=== PATIENT | female | born 1955 | race Caucasian/White ===

== ENCOUNTER 2017-02-25 14:06 | Inpatient (IN) | payer MEDICARE ==
--- NOTE | ~2017-02-25 | CN ---
Consultation Report [facility] [address] [place]. [address] NAME: TIEN ALDRIDGE : 51 STATUS : ADM IN PAT#: [id number] AGE: 61 ADM/REG DATE : 02/25/17 MR#: [id number] REPORT SERV DATE: 02/26/17 DICTATED BY: DATE: REPORT STATUS : Draft TRANSCRIBED BY: MODL DATE: 02/26/17 CONSULTATION DATE OF CONSULTATION: CONSULTATION REASON: Diabetes management. HISTORY OF PRESENT ILLNESS: This is a very pleasant 61-year-old female with a history of Parkinson's disease and dementia, diabetes mellitus type 2, bipolar disease, and heart failure. The patient was recently discharged on 02/21/2017 from [facility] after being admitted for a small bowel obstruction. She had an exploratory laparotomy and lysis of adhesions per Dr. Novoa. Her obstruction was resolved; however, she did develop C diff colitis. She was discharged on Flagyl p.o.; however, it is unclear if the patient was compliant with the medication regimen and she is still having diarrhea. Her blood sugars here have been controlled, the last one however was 239. The patient has not received her home Glucophage. PAST MEDICAL HISTORY: Includes bipolar, hypertension, GERD, diabetes mellitus type 2, hypothyroidism, fibromyalgia, hyperlipidemia, Parkinson's disease, diastolic heart failure, recent history of Clostridium difficile colitis, and small bowel obstruction. SURGICAL HISTORY: Includes appendectomy, cholecystectomy, hysterectomy, and recent exploratory lap with lysis of adhesions. SOCIAL HISTORY: The patient denies tobacco, alcohol, and illicit drug use. FAMILY HISTORY: The patient reports being adopted. HOME MEDICATIONS: Include Sinemet CR 25/100 mg tablet one tab t.i.d. and also at bedtime p.r.n. as needed, vitamin D3 at 1000 units p.o. daily, Celexa 40 mg p.o. at bedtime, Klonopin 0.5 mg p.o. b.i.d., vitamin B12 at 500 mg p.o. daily, Lasix 20 mg p.o. daily p.r.n. for weight gain greater than 2 pounds, Neurontin 600 mg p.o. b.i.d., Synthroid 50 mcg p.o. daily, Glucophage 500 mg p.o. at breakfast and supper, Flagyl 500 mg p.o. q.8 hours, Remeron 7.5 mg p.o. at bedtime, niacin 500 mg p.o. at bedtime, Percocet 5/325 mg tablet one tab p.o. q.4 hours p.r.n. for pain, Protonix 40 mg p.o. daily, potassium 10 mEq p.o. daily p.r.n., Neupro 8 mg 24-hour patch, tetrabenazine 25 mg p.o. at bedtime, Ambien 10 mg p.o. at bedtime. ALLERGIES: THE PATIENT HAS NO KNOWN DRUG ALLERGIES. REVIEW OF SYSTEMS: A 10-point review of systems was performed. All positives noted above, otherwise negative. PHYSICAL EXAMINATION: Consultation Report [address] [place]. [address] NAME: TIEN ALDRIDGE : 51 STATUS : ADM IN [facility]#: [id number] AGE: 61 ADM/REG DATE : 02/25/17 MR#: [id number] REPORT SERV DATE: 02/26/17 DICTATED BY: DATE: REPORT STATUS : Draft TRANSCRIBED BY: MODL DATE: 02/26/17 CONSTITUTIONAL: The patient is confused and pleasant. Denies fevers or chills. HEENT: Head is normocephalic. Throat clear. Denies discharge, sore throat, or cough. Pupils equal, round, and reactive to light and accommodation. RESPIRATORY: Lungs clear throughout. Lung rowe with normal respiratory effort. CV: S1 and S2 present. No murmurs, rubs, or gallops noted. GI: Abdominal tenderness to palpation. Bowel sounds present. NEURO: No focal deficits noted. Cranial nerves 2 through 12 grossly intact. However, the patient is pleasantly confused. She is alert and oriented x2. PSYCH: She has an appropriate affect and is cooperative. ASSESSMENT AND PLAN: 1. Diabetes mellitus type 2. We will check a.c. and h.s. blood sugars. Place the patient on sliding scale. I will hold her long-acting Lantus for now to ensure that she is able to tolerate p.o.'s. We will continue her metformin p.o. 2. Diarrhea and abdominal pain. This will be managed by the primary team of Dr. Star Novoa starting Flagyl p.o. The patient recently was diagnosed with Clostridium difficile at [facility]. She was discharged with a prescription for Flagyl; however, it was never filled and the patient did not take any after discharge. Likely, her diarrhea is related to Clostridium difficile. 3. Recent exploratory lap with lysis of adhesions per Dr. Novoa. Denies nausea and vomiting. She will be placed on a regular diet per the primary team as long as she tolerates it. Again, I will adjust her diabetes management based on her p.o. intake and blood sugar levels. CLR/MODL Casey Patel NP / [id number] CC: Haris Novoa M.D. Harvey Bailey MD
--- NOTE | ~2017-02-25 | DS ---
Discharge Summary [facility] [address] [place]. [address] NAME: TIEN ALDRIDGE : 51 STATUS : DIS IN PAT#: [id number] AGE: 61 ADM/REG DATE : 02/25/17 MR#: [id number] REPORT SERV DATE: 03/12/17 DICTATED BY: HARIS SENA DATE: 03/11/17 REPORT STATUS : Draft TRANSCRIBED BY: MODSang DATE: 03/11/17 Data Collection from hospitalization DISCHARGE DIAGNOSES: ( ) ( ) ( ) CONSULTATION: Casye Patel NP PROCEDURES PERFORMED: None. DISCHARGE MEDICATIONS: Vitamin B12 500 mcg every morning, niacin 50 mg at bedtime, Sinemet CR one tablet three times a day and as instructed, vitamin D3 1000 units every morning, Celexa 40 mg at bedtime, Lasix 20 mg every morning, Lasix 20 mg daily as needed, Neurontin 600 mg twice a day, Lantus 10 units subcutaneously at bedtime, Synthroid 50 mcg every morning, Remeron 7.5 mg at bedtime, Theragran tablets one tablet daily, Protonix 40 mg every morning, Neupro one patch topically every morning, Florastor two capsules twice a day, tetrabenazine 25 mg at bedtime, Ambien 5 mg at bedtime, Klonopin 0.5 mg twice a day, Glucophage 500 mg with breakfast and supper, Flagyl 500 mg every eight hours for 10 days, Tylenol 650 mg every six hours as needed, Sinemet CR one tablet at bedtime as needed, glucagon 1 mg IM as needed, glucose tablets as instructed, potassium chloride SR 10 mEq daily as needed, Motrin PM two tablets at bedtime as needed. CONDITION AT DISCHARGE: Stable. DISPOSITION: The patient was discharged to [facility] on a diabetic diet with activities as instructed. HOSPITAL COURSE: This is a 61-year-old female, who had been admitted to the [facility] and was just recently discharged the week prior to this admission. I was consulted during that admission for a partial small bowel obstruction. We attempted to get this resolved with conservative therapy and she never would open up, so she was taken to the operating room, where an exploratory laparotomy and lysis of adhesions were performed. This occurred on 02/11/2017. Postoperatively, she developed a mild ileus, but her nasogastric tube was able to be removed later in the week on approximately 02/15/2017. Her diet was slowly started. I last saw her on 02/19/2017 and she was tolerating a regular diet and was having bowel activity. She had no further nausea or vomiting. She apparently started having some loose stools and was checked for C difficile and this was positive. Her white count remained normal and she had no toxicity associated with it and she opted to be treated with Flagyl. However, when the patient was discharged, she never got her Flagyl prescription filled, started and initiated. She started having what she reports is uncontrolled diarrhea, but denied any nausea, vomiting, or abdominal pain. She presented to the emergency room at this time and was admitted for further evaluation and treatment. Upon admission, Flagyl was going to be initiated. She did not have any acute surgical issues or evidence of any surgical complications at this time. She was seen by Casey Patel regarding diabetes management. The patient has a history of Parkinson disease, dementia, type 2 diabetes mellitus, bipolar disease, and heart failure. The patient was Discharge Summary [address] [address] NAME: TIEN ALDRIDGE : 51 STATUS : DIS IN PAT#: [id number] AGE: 61 ADM/REG DATE : 02/25/17 MR#: [id number] REPORT SERV DATE: 03/12/17 DICTATED BY: HARIS SENA DATE: 03/11/17 REPORT STATUS : Draft TRANSCRIBED BY: ABBIE DATE: 03/11/17 going to be placed on sliding scale insulin. Long-acting Lantus was going to be held for now to ensure that she was able to tolerate oral intake. Oral metformin was going to be continued. She was going to be placed on a regular diet as long as she could tolerate this. Diabetes management would be adjusted based on her oral intake and blood sugar level. On the , she has had a good night. She denied any nausea or vomiting or abdominal pain. Her incisions were dry. Her abdomen was soft, nontender, and nondistended. She had no surgical issues. She was evaluated by Physical Therapy. Discharge planning was performed. She was up sitting in a chair. Lantus was added to her regimen that evening. Level 2 sliding scale insulin continued. On 02/28/2017, she was feeling good. She was afebrile. Her abdomen remained soft and nontender. Stool studies were negative. Discharge instructions were given. Due to her improved and stable condition, she was discharged to [facility] with the above-stated instructions. Information collected by: April Tracy I submit the above information as my discharge summary. GOKUL/ABBIE Haris Sena M.D. / [id number] CC: Haris Sena M.D. [facility]
--- NOTE | ~2017-02-25 | HP ---
History And Physical [facility] [place] [id number] [facility] [place]. [address] NAME: TIEN DOUGHERTY : 51 STATUS : ADM IN PAT#: [id number] AGE: 61 ADM/REG DATE : 02/25/17 MR#: [id number] REPORT SERV DATE: 02/26/17 DICTATED BY: HARIS SENA DATE: 02/26/17 REPORT STATUS : Draft TRANSCRIBED BY: MODSang DATE: 02/26/17 DATE OF ADMISSION: 02/25/2017 CHIEF COMPLAINT: Diarrhea and weakness. HISTORY OF PRESENT ILLNESS: Ms. Dougherty is a 61-year-old female, who was admitted to [facility] and was just recently discharged last week. I was consulted during her admission for a partial small bowel obstruction. We attempted to get this resolved with conservative therapy and she never would open up, so she was taken to the operating room, where an exploratory laparotomy and lysis of adhesions were performed. This occurred on 02/11/2017. Postoperatively, she developed a mild ileus, but her nasogastric tube was able to be removed later in the week on approximately 02/15/2017, and a diet was slowly started. I last saw her a week ago on 02/19/2017, and she was tolerating a regular diet and having bowel activity, and no further nausea or vomiting. She apparently started having some loose stools and she was checked for C diff, and this was positive. Her white count remained normal and she had no toxicity associated with it and has opted to be treated with Flagyl. However, when the patient was discharged, she never got her Flagyl prescription filled, started, and initiated. She started having what she reports as uncontrollable diarrhea, but denies any nausea, vomiting, or abdominal pain. She presented to the emergency room last night, was admitted by emergency room doctor to my service after consultation with Dr. Logan, who was covering for me and I was not aware of the admission until this afternoon while I was notified of it by the nursing staff. Currently, she denies any abdominal pain. No nausea or vomiting. Just reports her diarrhea was uncontrollable, but she was unable to quantitate this and could not tell me how many bowel movements she was having on a daily basis. She does have some dementia associated with Parkinson's disease apparently and her daughters were not with her at the bedside. Last night in the emergency room, no imaging was performed, but laboratory analysis revealed a white blood cell count of 6.9, hematocrit of 30, platelet count 366. She was eating lunch today, but just had a poor intake and she states that she just feels very weak and cannot get around well. PAST MEDICAL HISTORY: Significant for fibromyalgia, diabetes, bipolar disease, dementia and Parkinson's disease, and gastroesophageal reflux disease. CURRENT MEDICATIONS: At home include Glucophage, Celexa, Neurontin, Klonopin, Remeron, vitamins, and insulin. ALLERGIES: NO KNOWN DRUG ALLERGIES. SOCIAL HISTORY: Denies tobacco or alcohol use. FAMILY HISTORY: She is adopted and family history is unobtainable. REVIEW OF SYSTEMS: The patient denies any abdominal pain, nausea, or vomiting. No fever or chills. No shortness of breath. No other associated symptoms or problems. History And Physical [address] [address] NAME: TIEN DOUGHERTY : 51 STATUS : ADM IN [facility]#: [id number] AGE: 61 ADM/REG DATE : 02/25/17 MR#: [id number] REPORT SERV DATE: 02/26/17 DICTATED BY: HARIS SENA DATE: 02/26/17 REPORT STATUS : Draft TRANSCRIBED BY: ABBIE DATE: 02/26/17 PAST SURGERIES: Are numerous and include an appendectomy, hysterectomy, open cholecystectomy, and the aforementioned recent lysis of adhesions done earlier this month. PHYSICAL EXAMINATION: VITAL SIGNS: Temperature is 99, pulse 76, respirations 18, blood pressure 129/76. GENERAL: She is an elderly female, who is in no acute distress. HEENT: Pupils are equal, round, and reactive to light. NECK: Supple. She has no jugular venous distention. No carotid bruits. PULMONARY: Normal respiratory effort. Breath sounds are clear. CARDIOVASCULAR: Regular rate and rhythm. ABDOMEN: Soft, nondistended. Her machelle are intact. She has no evidence of wound infection. EXTREMITIES: No clubbing, cyanosis, or edema. LABORATORY DATA: White blood cell count is 6.9, hematocrit 30, platelet count 366. Sodium 142, potassium 3.8, chloride 108, CO2 of 31, BUN 5, creatinine 0.58, albumin is 2.3, total bilirubin 0.3, alkaline phosphatase 73, ALT 17, AST 16. ASSESSMENT: The patient with recent status post exploratory laparotomy for lysis of adhesions and numerous medical problems including diabetes, Parkinson's, and Clostridium difficile colitis. PLAN: Plan is to initiate Flagyl for her known history of C diff that was tested positive at [facility] last week. We will also ask the hospitalist to assist us with management for medical issues. At the present time, she does not have any acute surgical issues or evidence of any surgical complications, so we will hold off on doing any imaging and continue to follow. ERIN/ABBIE Haris Sena M.D. / [id number] CC: Haris Sena M.D.
[~2017-02-25 14:06] MED LIST: CELEXA40 MG PO; COGEN1 PO; ESKALITH PO; HUMULIN SC; LEVOTHYROXIN125 MCG PO; NEUR300 PO; POOR HISTORIAN; SEROPHENE50 MG OR; VITAMIN D31000 UNIT PO
[2017-02-25 14:30] LABS: ER CBC TAT 0 Hrs 05 Mins; HEMATOCRIT 33.4 % (36.0-48.0); HEMOGLOBIN 10.7 g/dL (12.0-16.0); MANUAL DIFF YES %; MEAN CORPUSCULAR HEMOGLOB 29.6 pg (26.0-34.0); MEAN CORPUSCULAR VOLUME 92.3 fL (80-100); PLATELET COUNT 412 10/3/uL (150-400); RBC DISTRIBUTION WIDTH 16.3 % (12.0-16.0); RED CELL COUNT 3.62 10/6/uL (4.0-5.6); WHITE BLOOD CELLS 11.1 10/3/uL (4.5-10.5)
[2017-02-25 14:49] LABS: A/G RATIO 0.7 (0.7-1.9); ALBUMIN 2.9 G/DL (3.5-5.0); BUN (BLOOD UREA NITROGEN) 8 MG/DL (6-23); CALCIUM, SERUM 8.9 MG/DL (8.5-10.4); CHLORIDE, SERUM 111 MMOL/L (96-112); CREATININE 0.85 MG/DL (0.55-1.02); GFR AFRICAN AMERICAN 85 ML/MIN (>=60); GFR NON AFRICAN AMERICAN 73 ML/MIN (>=60); GLOBULIN 4.3 G/DL (2.5-4.1); POTASSIUM, SERUM 4.2 MMOL/L (3.5-5.3); SGOT(AST) 21 U/L (5-40); SGPT(ALT) 10 U/L (5-65); SODIUM, SERUM 145 MMOL/L (135-148); TOTAL BILIRUBIN 0.3 MG/DL (0-1.2); TOTAL PROTEIN 7.2 G/DL (6.0-8.5)
[2017-02-25 14:50] LABS: ALKALINE PHOSPHATASE 94 U/L (45-117); CO2 (CARBON DIOXIDE) 28 MMOL/L (24-34); GLUCOSE, SERUM 167 MG/DL (60-99)
[2017-02-25 15:25] LABS: ANISOCYTOSIS 1+ (5-10/OIF) (0-5/OIF); BAND NEUTROPHILS 3 %; ER DIFF TAT 1 Hrs 00 Mins; LYMPHOCYTES 26 %; LYMPHOCYTES ABSOLUTE (CALC) 2.89 10/3/uL (0.67-4.30); MONOCYTES 3 %; MONOCYTES ABSOLUTE (CALC) 0.33 10/3/uL (0.21-1.20); NEUTROPHILS ABSOLUTE (CALC) 7.88 10/3/uL (2.02-8.40); PLATELET ESTIMATE ADQ (ADEQUATE); SEGMENTED NEUTROPHIL (0) 68 %; TOTAL NUCLEATED CELLS 100
[2017-02-25] MEDS ORDERED: L20 PO (20:02)
[2017-02-25] MEDS ORDERED: LACTOBACILLUS (20:03)
[2017-02-25] MEDS ORDERED: FLAG500TAB PO (20:03)
[2017-02-25] MEDS ORDERED: PCET PO (20:04)
[2017-02-25] MEDS ORDERED: PROTONIX PO (20:05)
[2017-02-25] MEDS ORDERED: KLOR-CON 1010 MEQ PO (20:08)
[2017-02-25] MEDS ORDERED: TETRABENAZINE 25 MG PO (20:08)
[2017-02-25] MEDS ORDERED: REM15 PO (20:09)
[2017-02-25] MEDS ORDERED: NEUR600 PO (20:10)
[2017-02-25] MEDS ORDERED: KLONO5 PO (20:10)
[2017-02-25] MEDS ORDERED: SYN.05 PO (20:11)
[2017-02-25] MEDS ORDERED: GLUCPH PO (20:11)
[2017-02-25] MEDS ORDERED: AMB10 PO (20:12)
[2017-02-25] MEDS ORDERED: CELEXA40 MG PO (20:12)
[2017-02-25] MEDS ORDERED: SINCR25100 PO (20:13)
[2017-02-25] MEDS ORDERED: METRONIDAZOLE PO (20:14)
[2017-02-26 05:39] LABS: BASOPHILS ABSOLUTE 0.07 10/3/uL (0.0-0.16); EOSINOPHILS 2.2 %; EOSINOPHILS ABSOLUTE 0.15 10/3/uL (0.0-0.53); HEMATOCRIT 30.4 % (36.0-48.0); HEMOGLOBIN 9.8 g/dL (12.0-16.0); IMMATURE GRANULOCYTES 0.3 %; IMMATURE GRANULOCYTES ABSOLUTE 0.02 10/3/uL (0.0-0.11); LYMPHOCYTES 39.2 %; MANUAL DIFF NO %; MEAN CORPUS HGB CONC 32.2 g/dL (32.0-36.0); MEAN CORPUSCULAR HEMOGLOB 29.7 pg (26.0-34.0); MEAN CORPUSCULAR VOLUME 92.1 fL (80-100); MEAN PLATELET VOLUME 10.6 fL (9.2-13.0); MONOCYTES 4.9 %; MONOCYTES ABSOLUTE 0.34 10/3/uL (0.21-1.20); NEUTROPHILS 52.4 %; NEUTROPHILS ABSOLUTE 3.61 10/3/uL (2.02-8.40); PLATELET COUNT 366 10/3/uL (150-400); RBC DISTRIBUTION WIDTH 16.3 % (12.0-16.0); WHITE BLOOD CELLS 6.9 10/3/uL (4.5-10.5)
[2017-02-26 05:51] LABS: A/G RATIO 0.6 (0.7-1.9); ALBUMIN 2.3 G/DL (3.5-5.0); ALKALINE PHOSPHATASE 73 U/L (45-117); BUN (BLOOD UREA NITROGEN) 5 MG/DL (6-23); CALCIUM, SERUM 8.6 MG/DL (8.5-10.4); CHLORIDE, SERUM 108 MMOL/L (96-112); CO2 (CARBON DIOXIDE) 31 MMOL/L (24-34); CREATININE 0.58 MG/DL (0.55-1.02); GFR AFRICAN AMERICAN 114 ML/MIN (>=60); GFR NON AFRICAN AMERICAN 98 ML/MIN (>=60); GLOBULIN 3.7 G/DL (2.5-4.1); GLUCOSE, SERUM 178 MG/DL (60-99); POTASSIUM, SERUM 3.8 MMOL/L (3.5-5.3); SGOT(AST) 16 U/L (5-40); SGPT(ALT) 17 U/L (5-65); SODIUM, SERUM 142 MMOL/L (135-148); TOTAL BILIRUBIN 0.3 MG/DL (0-1.2)
[2017-02-26] MEDS ORDERED: NEUPRO1 EACH TOP (12:22)
[2017-02-26] MEDS ORDERED: L20 PO (12:24)
[2017-02-26] MEDS ORDERED: NIACIN 500 PO (12:27)
[2017-02-26] MEDS ORDERED: FLAG500TAB PO (12:29)
[2017-02-26] MEDS ORDERED: SINCR25100 PO (12:31)
[2017-02-26] MEDS ORDERED: VITAMIN D31000 UNIT PO (12:32)
[2017-02-26] MEDS ORDERED: VITAMIN B-121000 MC1 PO (12:33)
[2017-02-26] MEDS ORDERED: MOTRIN PM PO (12:38)
[2017-02-26] MEDS ORDERED: LANTUS SC (12:39)
[2017-02-27 05:38] LABS: HEMATOCRIT 30.4 % (36.0-48.0); HEMOGLOBIN 9.3 g/dL (12.0-16.0); MEAN CORPUS HGB CONC 30.6 g/dL (32.0-36.0); MEAN CORPUSCULAR HEMOGLOB 29.2 pg (26.0-34.0); MEAN PLATELET VOLUME 11.6 fL (9.2-13.0); RBC DISTRIBUTION WIDTH 16.3 % (12.0-16.0); RED CELL COUNT 3.18 10/6/uL (4.0-5.6); WHITE BLOOD CELLS 5.6 10/3/uL (4.5-10.5)
[2017-02-27 05:39] LABS: MANUAL DIFF YES %; MEAN CORPUSCULAR VOLUME 95.6 fL (80-100); PLATELET COUNT 252 10/3/uL (150-400)
[2017-02-27 05:57] LABS: BAND NEUTROPHILS 1 %; LYMPHOCYTES 52 %; LYMPHOCYTES ABSOLUTE (CALC) 2.91 10/3/uL (0.67-4.30); MONOCYTES 6 %; MONOCYTES ABSOLUTE (CALC) 0.34 10/3/uL (0.21-1.20); NEUTROPHILS ABSOLUTE (CALC) 2.35 10/3/uL (2.02-8.40); PLATELET ESTIMATE ADQ (ADEQUATE); RBC MORPHOLOGY NORM (NORMAL); SEGMENTED NEUTROPHIL (0) 41 %; TOTAL NUCLEATED CELLS 100
[2017-02-27 05:58] LABS: BUN (BLOOD UREA NITROGEN) 3 MG/DL (6-23); CALCIUM, SERUM 8.9 MG/DL (8.5-10.4); CHLORIDE, SERUM 111 MMOL/L (96-112); CREATININE 0.59 MG/DL (0.55-1.02); GFR AFRICAN AMERICAN 113 ML/MIN (>=60); GFR NON AFRICAN AMERICAN 98 ML/MIN (>=60); GLUCOSE, SERUM 155 MG/DL (60-99); SODIUM, SERUM 143 MMOL/L (135-148)
[2017-02-27 05:59] LABS: CO2 (CARBON DIOXIDE) 24 MMOL/L (24-34); POTASSIUM, SERUM 4.5 MMOL/L (3.5-5.3)
== END 2017-02-28 17:30 | DRG 372 ==
LOC: ER 14:06 → 4SO 19:44
PROVIDERS: Emergency Medicine; Hospitalist; Surgery
DX: A04.7 Enterocolitis due to Clostridium difficile (principal); I50.32 Chronic diastolic (congestive) heart failure; G20 Parkinson's disease; I11.0 Hypertensive heart disease with heart failure; F02.80 Dementia in other diseases classified elsewhere, unspecified severity, without behavioral disturbance, psychotic disturbance, mood disturbance, and anxiety; M79.7 Fibromyalgia; K21.9 Gastro-esophageal reflux disease without esophagitis; F31.9 Bipolar disorder, unspecified; E78.5 Hyperlipidemia, unspecified; E03.9 Hypothyroidism, unspecified; Z91.14 Patient's other noncompliance with medication regimen; Z79.84 Long term (current) use of oral hypoglycemic drugs; Z79.4 Long term (current) use of insulin; Z79.899 Other long term (current) drug therapy; E11.65 Type 2 diabetes mellitus with hyperglycemia; Z79.891 Long term (current) use of opiate analgesic; T37.3X6A Underdosing of other antiprotozoal drugs, initial encounter
CPT/HCPCS: 71010; 74020; 80048; 80053; 81001; 82962; 83690; 85025; 87045; 87046; 87046-59; 87328; 87329; 87493; 87493-59; 87899; 87899-59; 89055; 96374; 96375; 97110-GP; 97116-GP; 97161-GP; 99284; A9270-GY; G8978-CK-GP; G8979-CI-GP; J1170; J2405